=== PATIENT | female | born 1995 | race Caucasian/White ===

== ENCOUNTER 2017-05-19 11:23 | Emergency (ER) | payer BC ==
[~2017-05-19] VITALS: Ht 165.1 cm; Wt 62.0 kg
[2017-05-19 11:25] VITALS: TEMP 36.7; Ht 165.1 cm; Wt 62.0 kg
[2017-05-19] MEDS ORDERED: SODIUM CHLORIDE 0.9% 1000ML 1,000 ML IV STA (11:40)
[2017-05-19] MEDS ORDERED: ONDANSETRON INJ 2 MG/ML 2 ML VIAL IV STA (11:40)
--- NOTE | 2017-05-19 11:42 | EMERGENCY ROOM VISIT NOTE ---
History Report prepared by Shaq: Yue Corrales Under the Supervision of: Andrés WhitfieldO. First contact with patient: 11:29 Chief Complaint: VOMITING Stated Complaint: NAUSEA, VOMITING, DIARRHEA, PASSED OUT Nursing Triage Summary: pt to the ED with c/o GI bug since last night with n/v/d and then had 1 syncopal episode this am pt c/o body aches and her roommate in school has mono History of Present Illness The patient is a 21 year old female who presents to the Emergency Room with complaints of persistent flu like symptoms that began yesterday. The patient states that she has been experiencing nausea, diarrhea, and vomiting, noting she fainted this morning. She notes that she has been having some cramps, noting they are not severe. She notes that her roommate was diagnosed with mononucleosis yesterday. The patient states she is an occasional drinker and denies smoking. She notes she recently traveled to [facility]. Source of History: patient Onset: yesterday Position: other (global) Quality: other (flu l) Timing: other (persistent) Associated Symptoms: + nausea, + vomiting, + abdominal pain, + diarrhea Review of Systems See HPI for pertinent positives & negatives. A total of 10 systems reviewed and were otherwise negative. Past Medical & Surgical Medical Problems: (1) No Known Active Medical Problems Family History Patient reports no known family medical history. Social History Smoking Status: Never Smoker Smokeless Tobacco Use: No Alcohol Use: occasionally Drug Use: none Marital Status: single Housing Status: lives with roommate Occupation Status: student Current/Historical Medications Scheduled Ondasetron Odt (Zofran Odt), 4 MG SL Q6H Allergies Coded Allergies: No Known Allergies (Unverified , 05/19/17) Physical Exam Vital Signs Date Time Temp Pulse Resp B/P (MAP) Pulse Ox O2 Delivery O2 Flow Rate FiO2 05/19/17 15:19 89 17 100/58 97 05/19/17 13:53 96 20 05/19/17 13:23 86 20 05/19/17 12:53 87 16 05/19/17 12:47 82 17 105/72 96 Room Air 05/19/17 12:46 105/72 05/19/17 12:23 79 13 05/19/17 12:23 83 05/19/17 11:25 36.7 108 16 105/63 96 Room Air Physical Exam GENERAL: Patient is awake, alert, and in no acute distress. Patient is resting comfortably and showing no signs of anxiety EYES: The conjunctivae are clear. The pupils are round and reactive. EARS, NOSE, MOUTH AND THROAT: Mucous membranes dry. The nose is without any evidence of any deformity. NECK: The neck is nontender and supple. RESPIRATORY: Normal respiratory effort is noted there is no evidence of wheezing rhonchi or rales CARDIOVASCULAR: Regular rate and rhythm noted there no murmurs rubs or gallops normal S1 normal S2 GASTROINTESTINAL: The abdomen is soft. Bowel sounds are present in all quadrants. Abdomen is nontender MUSCULOSKELETAL/EXTREMITIES: There is no evidence of gross deformity full range of motion is noted in the hips and shoulders SKIN: There is no obvious evidence of any rash. There are no petechiae, pallor or cyanosis noted. NEUROLOGIC: Patient is awake alert and oriented x3 strength is symmetric patellar reflexes are 2+ bilaterally Medical Decision & Procedures Laboratory Results 05/19/17 11:50 Red Blood Count 4.70, Mean Corpuscular Volume 92.1, Mean Corpuscular Hemoglobin 31.9, Mean Corpuscular Hemoglobin Concent 34.6, Mean Platelet Volume 9.5, Neutrophils (%) (Auto) 94.1, Lymphocytes (%) (Auto) 2.7, Monocytes (%) (Auto) 2.8, Eosinophils (%) (Auto) 0.1, Basophils (%) (Auto) 0.1, Neutrophils # (Auto) 8.25, Lymphocytes # (Auto) 0.24, Monocytes # (Auto) 0.25, Eosinophils # (Auto) 0.01, Basophils # (Auto) 0.01 05/19/17 11:50 Test 05/19/17 11:50 05/19/17 13:35 White Blood Count 8.78 K/uL (4.8-10.8) Red Blood Count 4.70 M/uL (4.2-5.4) Hemoglobin 15.0 g/dL (12.0-16.0) Hematocrit 43.3 % (37-47) Mean Corpuscular Volume 92.1 fL (80-100) Mean Corpuscular Hemoglobin 31.9 pg (25-34) Mean Corpuscular Hemoglobin Concent 34.6 g/dl (32-36) Platelet Count 178 K/uL (130-400) Mean Platelet Volume 9.5 fL (7.4-10.4) Neutrophils (%) (Auto) 94.1 % Lymphocytes (%) (Auto) 2.7 % Monocytes (%) (Auto) 2.8 % Eosinophils (%) (Auto) 0.1 % Basophils (%) (Auto) 0.1 % Neutrophils # (Auto) 8.25 K/uL (1.4-6.5) Lymphocytes # (Auto) 0.24 K/uL (1.2-3.4) Monocytes # (Auto) 0.25 K/uL (0.11-0.59) Eosinophils # (Auto) 0.01 K/uL (0-0.5) Basophils # (Auto) 0.01 K/uL (0-0.2) RDW Standard Deviation 44.1 fL (36.4-46.3) RDW Coefficient of Variation 13.1 % (11.5-14.5) Immature Granulocyte % (Auto) 0.2 % Immature Granulocyte # (Auto) 0.02 K/uL (0.00-0.02) Anion Gap 6.0 mmol/L (3-11) Est Creatinine Clear Calc Drug Dose 87.6 ml/min Estimated GFR () 103.3 Estimated GFR (Non- 89.1 BUN/Creatinine Ratio 24.9 (10-20) Calcium Level 9.4 mg/dl (8.5-10.1) Magnesium Level 2.2 mg/dl (1.8-2.4) Total Bilirubin 1.2 mg/dl (0.2-1) Direct Bilirubin 0.2 mg/dl (0-0.2) Aspartate Amino Transf (AST/SGOT) 16 U/L (15-37) Alanine Aminotransferase (ALT/SGPT) 21 U/L (12-78) Alkaline Phosphatase 75 U/L (45-117) Troponin I < 0.015 ng/ml (0-0.045) Total Protein 8.2 gm/dl (6.4-8.2) Albumin 4.3 gm/dl (3.4-5.0) Lipase 110 U/L (73-393) Human Chorionic Gonadotropin, Qual NEG (NEG) Urine Color YELLOW Urine Appearance CLEAR (CLEAR) Urine pH 5.5 (4.5-7.5) Urine Specific [place] 1.027 (1.000-1.030) Urine Protein NEG (NEG) Urine Glucose (UA) NEG (NEG) Urine Ketones 2+ (NEG) Urine Occult Blood NEG (NEG) Urine Nitrite NEG (NEG) Urine Bilirubin NEG (NEG) Urine Urobilinogen NEG (NEG) Urine Leukocyte Esterase NEG (NEG) Laboratory results per my review. Medications Administered Medications (Trade) Dose Ordered Sig/Clau Route Start Time Stop Time Status Last Admin Dose Admin Sodium Chloride 1,000 ml @ 999 mls/hr Q1H1M STAT IV 05/19/17 11:40 05/19/17 12:40 DC 05/19/17 12:00 999 MLS/HR Ondansetron HCl (Zofran Inj) 4 mg NOW STAT IV 05/19/17 11:40 05/19/17 11:42 DC 05/19/17 12:00 4 MG Lactated Ringer's 1,000 ml @ 999 mls/hr Q1H1M STAT IV 05/19/17 13:24 05/19/17 14:24 DC 05/19/17 13:24 999 MLS/HR ECG Indication: other (back pain) Rate (beats per minute): 87 Rhythm: other (wandering atrial pace maker) Findings: other (no PVC's noted, no acute ST abnormalities) Comparison ECG Date: no prior available Change: Repeated EKG findings: Sinus rhythm, rate of 83, frequent PAC noted, no acute ST abnormalities. ED Course 1135: The patient was evaluated in room B3. A complete history and physical examination were performed. 1140: Ordered Sodium chloride 1000ml @ 999mls/hr IV and Zofran Inj 4mg IV. 1323: I reevaluated the patient, who was resting comfortably and is feeling significantly better. The patient is going to give a urine sample. I will repeat the EKG. 1415: I reevaluated the patient, who was resting. 1420: I discussed the patient's case with Dr. Hinds [facility]. He recommended the patient do outpatient work up, returning immediately if worse. I updated the patient on the test findings and treatment plan. She was discharged home. Medical Decision Prior records/ancillary studies reviewed. Triage Nursing notes reviewed. The patient's history was concerning for nausea, vomiting, diarrhea, and abdominal pain. Differential diagnosis: Etiologies such as gastroenteritis, food borne illness, infections, appendicitis , diverticulitis, inflammatory bowel disease, obstruction, GI bleed, biliary pathology, as well as others were entertained. The patient is a 21-year-old female who presented to the emergency department for an evaluation of nausea and vomiting as well as diarrhea. The patient does not have abdominal pain. Her physical exam was not consistent with an acute surgical abdomen. She had an episode of syncope today which I think could be related to dehydration however she was found have an abnormal EKG with what appeared to be ectopic atrial rhythm. I discussed the patient's laboratory and radiographic studies with her. On the community relations representative her dysrhythmia seem to improve after IV hydration. I discussed her case with the on-call [facility] environmental health and safety manager. The patient was encouraged to call to schedule follow-up appointment for further testing such as echocardiogram and Holter monitoring. She was also encouraged to drink plenty for liquids and continue all medications as prescribed. Otherwise she was encouraged to return to the emergency Department immediately if symptoms change worsen or the need arises. Medication Reconcilliation Current Medication List: was personally reviewed by me Consults Time Called: 1420 Consulting Physician: MEDINA Hernandez Returned Call: 1420 I discussed the patient's case with MEDINA Hernandez. He recommended the patient do outpatient work up, returning immediately if worse. Impression Primary Impression: Nausea Additional Impressions: Vomiting Dehydration Abnormal EKG Scribe Attestation The scribe's documentation has been prepared under my direction and personally reviewed by me in its entirety. I confirm that the note above accurately reflects all work, treatment, procedures, and medical decision making performed by me. Departure Information Dispostion Home / Self-Care Prescriptions Ondasetron Odt (ZOFRAN ODT) 4 Mg Tab 4 MG SL Q6H for Nausea, #15 TAB Prov: Reno Gómez, DO 05/19/17 Referrals Migue Tejada M.D. (PCP) Forms HOME CARE DOCUMENTATION FORM, IMPORTANT VISIT INFORMATION Patient Instructions My [facility] Additional Instructions Drink plenty clear liquids. Rest and avoid any strenuous activity. Call to schedule a follow-up appointment with the environmental health and safety manager to decide if you need further studies such as an echocardiogram and a Holter monitor to further evaluate the cause of your abnormal EKG. Return to the emergency Department immediately if symptoms change worsen or the need arises. Problem Qualifiers Additional Impressions: Vomiting Vomiting type: unspecified Vomiting Intractability: non-intractable Nausea presence: with nausea Qualified Codes: R11.2 - Nausea with vomiting, unspecified
[2017-05-19 12:09] LABS: BASO % 0.1 %; BASO ABS # 0.01 K/uL (0-0.2); EOS % 0.1 %; EOS ABS # 0.01 K/uL (0-0.5); HEMATOCRIT 43.3 % (37-47); IG# 0.02 K/uL (0.00-0.02); LYMPH % 2.7 %; LYMPH ABS # 0.24 K/uL (1.2-3.4); MEAN CELL VOLUME 92.1 fL (80-100); MEAN CORPUSCULAR HEMOGLOBIN 31.9 pg (25-34); MEAN CORPUSCULAR HGB CONC 34.6 g/dl (32-36); MEAN PLATELET VOLUME 9.5 fL (7.4-10.4); MONO % 2.8 %; MONO ABS # 0.25 K/uL (0.11-0.59); NEUT % 94.1 %; NEUT ABS # 8.25 K/uL (1.4-6.5); PLATELET COUNT 178 K/uL (130-400); RED CELL DISTRIBUTION WIDTH CV 13.1 % (11.5-14.5); RED CELL DISTRIBUTION WIDTH SD 44.1 fL (36.4-46.3); WHITE BLOOD COUNT 8.78 K/uL (4.8-10.8)
[2017-05-19 12:30] LABS: ALBUMIN 4.3 gm/dl (3.4-5.0); ALT/SGPT 21 U/L (12-78); AST/SGOT 16 U/L (15-37); BLOOD UREA NITROGEN 23 mg/dl (7-18); CALCIUM 9.4 mg/dl (8.5-10.1); CARBON DIOXIDE 25 mmol/L (21-32); CREATININE 0.93 mg/dl (0.60-1.20); GLUCOSE 110 mg/dl (70-99); LIPASE 110 U/L (73-393); POTASSIUM 3.7 mmol/L (3.5-5.1); SODIUM 136 mmol/L (136-145)
[2017-05-19 12:35] LABS: ALKALINE PHOSPHATASE 75 U/L (45-117); TOTAL PROTEIN 8.2 gm/dl (6.4-8.2)
[2017-05-19] MEDS ORDERED: LACTATED RINGER'S 1000ML 1,000 ML IV STA (13:24)
[2017-05-19] MEDS ORDERED: ONDA4TAB10 SL (15:15)
[2017-05-19 15:19] VITALS: BP 100/58; PULSE 89; O2SAT 97
== END 2017-05-19 15:50 | disposition home or self-care (01) ==
LOC: C.EDB 11:24
DX: E86.0 Dehydration (principal); R94.31 Abnormal electrocardiogram [ECG] [EKG]